=== PATIENT | female | born 1965 ===

== ENCOUNTER 2019-03-20 06:38 | Day surgery (SDC) | payer BC ==
[~2019-03-20 06:38] MED LIST: Lactated Ringers 1,000 ML IV SCH; Sodium Chloride 0.9% 10 ML SDV IV PRN; Sodium Chloride 0.9% 10 ML Syringe FLUSH PRN; Sodium Chloride 0.9% 2.5 ML Syringe FLUSH PRN; ceFAZolin 2 GM in Premix Bag 1 BAG IV ONE
[2019-03-20] MEDS ORDERED: Scopolamine 1.5 MG Transdermal Patch TRDERM PRN (07:05)
--- NOTE | 2019-03-20 07:07 | PCM.PREANE ---
Preanesthetic Assessment - Anesthesia/Transfusion/Family Hx Anesthesia History: Prior Anesthesia Without Reaction Family History of Anesthesia Reaction: No Transfusion History: No Prior Transfusion(s) Intubation History: Unknown - Review of Systems General: No Symptoms Pulmonary: No Symptoms Cardiovascular: No Symptoms Gastrointestinal: No Symptoms Neurological: No Symptoms Other: Reports: None - Physical Assessment Vital Signs: Last Vital Signs Temp 36.3 C 03/20/19 07:01 Pulse 65 03/20/19 07:01 Resp 16 03/20/19 07:01 BP 170/78 H 03/20/19 07:01 Pulse Ox 97 03/20/19 07:01 Height: 5 ft 4.75 in Weight: 112.945 kg ASA Class: 2 Mental Status: Alert & Oriented x3 Airway Class: Mallampati = 1 Dentition: Reports: Normal Dentition Thyro-Mental Finger Breadths: 3 Mouth Opening Finger Breadths: 3 ROM/Head Extension: Full Lungs: Clear to Auscultation, Normal Respiratory Effort Cardiovascular: Regular Rate, Regular Rhythm - Allergies Allergies/Adverse Reactions: Allergies Allergy/AdvReac Type Severity Reaction Status Date / Time No Known Allergies Allergy Verified 03/14/19 09:21 - Blood Blood Available: No - Anesthesia Plan Pre-Op Medication Ordered: None - Acknowledgements Anesthesia Type Planned: General Anesthesia Pt an Appropriate Candidate for the Planned Anesthesia: Yes Alternatives and Risks of Anesthesia Discussed w Pt/Guardian: Yes Pt/Guardian Understands and Agrees with Anesthesia Plan: Yes PreAnesthesia Questionnaire HEENT History: Reports: Cataract Other HEENT History: wears glasses, has cataract in right eye Respiratory History: Reports: Other (See Below) (usees albuterol inhaler for URI ) Genitourinary History: Reports: None CREDIT COUNSELOR History: Reports: Dysfunctional Uterine Bleeding, Endocrine/Metabolic History: Reports: Obesity/BMI 30+ - Past Surgical History Female Surgical History: Reports: Tubal Ligation - SUBSTANCE USE Smoking Status *Q: Never Smoker Recreational Drug Use History: No - HOME MEDS Home Medications: Home Meds Albuterol [Proventil Neb Soln] 1 dose NEB Q6H PRN 03/14/19 [History] - CURRENT (IN HOUSE) MEDS Current Meds: Current Medications Lactated Ringer's (Ringers, Lactated) 1,000 mls @ 500 mls/hr IV BOLUS [facility] Sodium Chloride (Saline Flush) 10 ml FLUSH ASDIRECTED PRN PRN Reason: Keep Vein Open Sodium Chloride (Saline Flush) 2.5 ml FLUSH ASDIRECTED PRN PRN Reason: Keep Vein Open Sodium Chloride (Normal Saline) 10 ml IV ASDIRECTED PRN PRN Reason: IV Use Discontinued Medications Cefazolin Sodium/Dextrose 2 gm (/ Premix) 50 mls @ 100 mls/hr IV ONETIME ONE Stop: 03/20/19 06:54
[2019-03-20] MEDS ORDERED: Ondansetron 4 MG/2 ML SDV ONE (07:13)
[2019-03-20] MEDS ORDERED: Dexamethasone 4 MG/ML 5 ML MDV ONE (07:13)
[2019-03-20] MEDS ORDERED: Midazolam 1 MG/ML 2 ML SDV ONE (07:13)
[2019-03-20] MEDS ORDERED: fentaNYL 100 MCG/2 ML SDV ONE ×2 (07:13→09:59)
[2019-03-20] MEDS ORDERED: Propofol 200 MG/20 ML SDV ONE ×2 (07:13→10:30)
[2019-03-20] MEDS ORDERED: Rocuronium 100 MG/10 ML Syringe ONE (07:13)
[2019-03-20] MEDS ORDERED: Vasopressin 20 Units/1 ML MDV ONE (07:23)
[2019-03-20] MEDS ORDERED: Fluorescein 5 ML Vial ONE (07:24)
[2019-03-20] MEDS ORDERED: Bupivacaine 0.5% 30 ML SDV ONE (07:24)
[2019-03-20] MEDS ORDERED: Bupivacaine 0.25% 10 ML SDV ONE (07:25)
[2019-03-20] MEDS ORDERED: ceFAZolin 1 GM Vial ONE (07:42)
[2019-03-20] MEDS ORDERED: Sodium Chloride 0.9% 20 ML ONE (07:42)
[2019-03-20 07:58] LABS: BLOOD UREA NITROGEN,BUN 11 mg/dL (7.0-18.0); CARBON DIOXIDE,CO2 25.2 mmol/L (21.0-32.0); CHLORIDE,CL 102 mmol/L (98-107); GLUCOSE RANDOM 109 mg/dL (74-106); POTASSIUM,K 4.5 mmol/L (3.5-5.1); SODIUM,NA 139 mmol/L (136-145)
[2019-03-20] MEDS ORDERED: Albuterol 6.7 GM Inhaler INH ONE (08:54)
[2019-03-20] MEDS ORDERED: Furosemide 40 MG/4 ML VIAL ONE (09:06)
[2019-03-20] MEDS ORDERED: Neostigmine Methylsulfate 1 MG/ML 5 ML Syringe ONE (09:09)
[2019-03-20] MEDS ORDERED: Glycopyrrolate 0.2 MG/ML SDV ONE (09:09)
[2019-03-20] MEDS ORDERED: 50% Dextrose in Water 50 ML Syringe IVPUSH PRN (09:33)
[2019-03-20] MEDS ORDERED: Albuterol 0.083% 2.5 MG/3 ML Neb Soln NEB PRN (09:33)
[2019-03-20] MEDS ORDERED: EPINEPHrine 1:10,000 1 MG/10 ML Syringe IVPUSH PRN (09:33)
[2019-03-20] MEDS ORDERED: Naloxone 0.4 MG/ML Syringe IVPUSH PRN (09:33)
[2019-03-20] MEDS ORDERED: Atropine 0.1 MG/ML 10 ML Syringe IVPUSH PRN ×2 (09:33)
[2019-03-20] MEDS ORDERED: fentaNYL 100 MCG/2 ML SDV IVPUSH PRN (09:33)
[2019-03-20] MEDS ORDERED: Ketorolac 30 MG/ML SDV ONE (10:17)
[2019-03-20] MEDS ORDERED: Octyl 2-Cyanoacrylate 1 Tube ONE (10:44)
[2019-03-20] MEDS ORDERED: Promethazine 25 MG/ML SDV ONE (11:15)
[2019-03-20] MEDS ORDERED: Promethazine 25 MG/ML SDV IM ONE (11:19)
[2019-03-20] MEDS ORDERED: Promethazine 25 MG/ML SDV IM PRN (11:29)
[2019-03-20] MEDS ORDERED: Ondansetron 4 MG/2 ML SDV IVPUSH PRN (11:29)
[2019-03-20] MEDS ORDERED: Morphine 4 MG/ML Syringe IVPUSH PRN (11:29)
[2019-03-20] MEDS ORDERED: Ketorolac 30 MG/ML SDV IVPUSH PRN (11:29)
[2019-03-20] MEDS ORDERED: Ketorolac 30 MG/ML SDV IVPUSH ONE (11:29)
--- NOTE | 2019-03-20 11:41 | PCM.OPNOTE ---
- General Post-Op/Procedure Note Date of Surgery/Procedure: 03/20/19 Operative Procedure(s): Total Laparoscopic Hysterectomy , Bilateral salphingoophorectomy. Cytoscopy Findings: 8 week sized anteverted uterus Tubes with evidence of BTL , however appears normal Normal ovary Pre Op Diagnosis: Chronic Pelvic Pain. Abnormal Uterine bleeding Post-Op Diagnosis: Chronic Pelvic pain. Abnormal Uterine bleeding Anesthesia Technique: General ET Tube Primary Surgeon: Pankaj Stewart Secondary Surgeon: Denice Hernandez Pathology: Uterus , Tube and Ovaries Fluid Replacement, Intraop: 2,000 Output, Urine Amount: 450 EBL in mLs: 100 Complications: None Condition: Good Free Text/Narrative:: Intake & Output 03/19/19 03/20/19 03/20/19 22:59 06:59 14:59 Output Total 450 Balance -450
--- NOTE | 2019-03-20 11:44 | PCM.POSTAN ---
POST ANESTHESIA ASSESSMENT - MENTAL STATUS Mental Status: Alert, Oriented - VITAL SIGNS Vital Signs: Last Vital Signs Temp 36.3 C 03/20/19 07:01 Pulse 66 03/20/19 11:35 Resp 16 03/20/19 11:35 BP 113/64 03/20/19 11:35 Pulse Ox 97 03/20/19 11:35 - RESPIRATORY Respiratory Status: Respiratory Rate WNL, Airway Patent, O2 Saturation Stable - CARDIOVASCULAR CV Status: Pulse Rate WNL, Blood Pressure Stable - GASTROINTESTINAL GI Status: No Symptoms - PAIN Pain Score: 0 - POST OP HYDRATION Hydration Status: Adequate & Stable - OBSERVATIONS Free Text/Narrative:: no anesthesia problems
[2019-03-20] MEDS ORDERED: Metoclopramide 10 MG/2 ML SDV IVPUSH SCH (11:45)
[2019-03-20] MEDS: Acetaminophen 500 MG Tab PO SCH ×2 (14:43→21:43)
[2019-03-20] MEDS: Metoclopramide 10 MG/2 ML SDV IVPUSH SCH ×2 (16:00→20:30)
[2019-03-20] MEDS: Lactated Ringers 1,000 ML IV SCH (16:42)
--- NOTE | 2019-03-20 18:01 | OR ---
SURGEON: PASHA Hernandez MD DATE OF PROCEDURE: 03/20/2019 PREOPERATIVE DIAGNOSIS: A 53-year-old para 2 with abnormal uterine bleeding (Leiomyoma) and chronic pelvic pain, desiring definitive management. POSTOPERATIVE DIAGNOSIS: A 53-year-old para 2 with abnormal uterine bleeding(Leiomyoma) and chronic pelvic pain, desiring definitive management. PROCEDURES: Total laparoscopic hysterectomy, bilateral salpingo-oophorectomy, cystoscopy. ANESTHESIA: General. ESTIMATED BLOOD LOSS: 100. IV FLUIDS: 2000. URINE OUTPUT: 450. NOTES AND FINDINGS: 10-week size anteverted uterus. Normal tubes with evidence of tubal ligation. Normal ovaries noted. There was no endometriosis or other pathology noted. BRIEF HISTORY: A 53-year-old, para 2, who came in complaining of chronic pelvic pain. She declined any other form of management. She has had this pain for about 2 to 3 years. She had an endometrial biopsy done, which was negative. USS showed uterine fibroid. The patient declined conservative management. She wanted to go for definitive management with hysterectomy. DESCRIPTION OF PROCEDURE: The patient was taken to the operating room where she was placed in the dorsal lithotomy position with an Nitin stirrups. She was prepared and draped in the normal sterile fashion. A Page catheter was placed. A speculum was used to expose the cervix after being prepped, and the anterior lip of the cervix was clamped with Allis clamp. The cervix was dilated to accommodate the Advincula interim manipulator. Then, attention was placed to the abdomen. 0.25% Marcaine was infiltrated into the subumbilical fold and 5 mm incision was made. The abdomen was entered via direct entry with the fiberoptic trocar. Entry was confirmed by low pressure of 5 mmHg. Pneumoperitoneum was obtained to 15 mmHg. Then, the patient was placed in Trendelenburg position. The right and left trocar were placed 2 fingerbreadths superior and medial to the anterior superior iliac spine. The uterus was elevated with aid of the uterine manipulator. The bilateral ureters were identified. The bowel was retracted out of the operative field with the aid of the LigaSure device. The fallopian tube was then coagulated and cut all the way to the cornua. The round ligament was also transected. Then, the broad ligament was entered in with the aid of the LigaSure and also the Harmonic device. The bladder flap was from the lower uterine segment. The uterine vessel was then skeletonized with good visualization. The uterine vessel was coagulated and cut at the cuff and lateralized. This was done on the right and left side. Then, a circumferential incision was made at the cervicovaginal junction at around the cup and the uterus was from the vagina. Then, attention was placed to the perineum where the uterus was then brought out with the aid of the manipulator. Then, the uterosacral ligaments were identified. A Rudolph stitch was done with 2-0 Vicryl, was placed from the posterior vaginal wall to the uterosacral ligament over the pelvic peritoneum to the cul-de-sac to the uterosacral ligament. Then, the colpotomy cup was closed anteroposteriorly with 0 Polysorb. IV fluorescein was given. The cystoscopy was then done. The bladder was noted to be intact and bilateral jets were observed from the ureteral orifice in the bladder. Then, a sponge stick was placed into the vagina. Attention was placed to the abdomen. The incision was inspected, was noted to be hemostatic. Pneumoperitoneum was reduced to 5 mmHg. Hemostasis was noted. Then, the pneumoperitoneum was deflated from also the abdomen. All the trocars were removed. The laparoscopic incision was closed with 3-0 Monocryl. All instrument and pad count were correct x2. The patient tolerated the procedure well and was taken to the recovery room in stable condition. VINCE LYNNE /[id number] CHRISTIAN
[2019-03-20] MEDS: oxyCODONE 5 MG Tab PO PRN (18:26)
[2019-03-21] MEDS: Lactated Ringers 1,000 ML IV SCH (00:20)
[2019-03-21] MEDS: oxyCODONE 5 MG Tab PO PRN (00:23)
[2019-03-21] MEDS: Metoclopramide 10 MG/2 ML SDV IVPUSH SCH ×2 (02:45→09:03)
[2019-03-21] MEDS: Acetaminophen 500 MG Tab PO SCH (06:03)
[2019-03-21 06:42] LABS: BLOOD UREA NITROGEN,BUN 8 mg/dL (7.0-18.0); CARBON DIOXIDE,CO2 27.4 mmol/L (21.0-32.0); CHLORIDE,CL 104 mmol/L (98-107); GLUCOSE RANDOM 123 mg/dL (74-106); POTASSIUM,K 4.1 mmol/L (3.5-5.1); SODIUM,NA 139 mmol/L (136-145)
--- NOTE | 2019-03-21 07:22 | PCM48HPAN ---
Post Anesthesia Note - EVALUATION WITHIN 48HRS OF ANESTHETIC Vital Signs in Normal Range: Yes Patient Participated in Evaluation: Yes Respiratory Function Stable: Yes Airway Patent: Yes Cardiovascular Function Stable: Yes Hydration Status Stable: Yes Pain Control Satisfactory: Yes Nausea and Vomiting Control Satisfactory: Yes Mental Status Recovered: Yes Vital Signs: Last Vital Signs Temp 36.4 C 03/21/19 04:00 Pulse 85 03/21/19 04:00 Resp 18 03/21/19 04:00 BP 139/63 03/21/19 04:00 Pulse Ox 95 03/21/19 04:00
--- NOTE | 2019-03-21 08:37 | PCM.SURGPN ---
- General Info Date of Service: 03/21/19 Date of Surgery/Procedure: 03/21/19 POD#: 1 Post-Op Diagnosis: AUB secondary to Fibroid uterus Functional Status: Reports: Pain Controlled, Tolerating Diet, Ambulating, Urinating - Review of Systems General: Reports: No Symptoms HEENT: Reports: No Symptoms Pulmonary: Reports: No Symptoms Cardiovascular: Reports: No Symptoms Gastrointestinal: Reports: No Symptoms Genitourinary: Reports: No Symptoms Musculoskeletal: Reports: No Symptoms Skin: Reports: No Symptoms Neurological: Reports: No Symptoms Psychiatric: Reports: No Symptoms - Patient Data Vitals - Most Recent: Last Vital Signs Temp 36.8 C 03/21/19 07:53 Pulse 56 L 03/21/19 07:53 Resp 16 03/21/19 07:53 BP 131/63 03/21/19 07:53 Pulse Ox 95 03/21/19 07:53 Weight - Most Recent: 112.945 kg I&O - Last 24 Hours: Intake & Output 03/20/19 03/21/19 03/21/19 22:59 06:59 14:59 Intake Total 700 3806 Output Total 1200 1400 Balance -500 2406 Lab Results Last 24 Hrs: Laboratory Results - last 24 hr 03/20/19 03/21/19 03/21/19 Range/Units 07:10 06:11 06:11 WBC 12.35 H (4.0-11.0) K/uL RBC 3.76 L (4.30-5.90) M/uL Hgb 9.5 L (12.0-16.0) g/dL Hct 30.9 L (36.0-46.0) % MCV 82.2 (80.0-98.0) fL MCH 25.3 L (27.0-32.0) pg MCHC 30.7 L (31.0-37.0) g/dL RDW Std Deviation 52.3 (28.0-62.0) fl RDW Coeff of Ulisses 17 H (11.0-15.0) % Plt Count 242 (150-400) K/uL MPV 9.80 (7.40-12.00) fL Add Manual Diff YES Neutrophils % (Manual) 74 (48.0-80.0) % Band Neutrophils % 1 % Lymphocytes % (Manual) 18 (16.0-40.0) % Monocytes % (Manual) 6 (0.0-15.0) % Eosinophils % (Manual) 1 (0.0-7.0) % Nucleated RBC % 0.0 /100WBC Absolute Seg Neuts 9.1 H (1.4-5.7) Band Neutrophils # 0.1 Lymphocytes # (Manual) 2.2 (0.6-2.4) Monocytes # (Manual) 0.7 (0.0-0.8) Eosinophils # (Manual) 0.1 (0.0-0.7) Nucleated RBCs # 0 K/uL Sodium 139 (136-145) mmol/L Potassium 4.1 (3.5-5.1) mmol/L Chloride 104 (98-107) mmol/L Carbon Dioxide 27.4 (21.0-32.0) mmol/L BUN 8 (7.0-18.0) mg/dL Creatinine 0.7 (0.6-1.0) mg/dL Est Cr Clr Drug Dosing 84.70 mL/min Estimated GFR (MDRD) > 60.0 ml/min Glucose 123 H (74-106) mg/dL Calcium 8.1 L (8.5-10.1) mg/dL Blood Type O NEGATIVE Antibody Screen NEGATIVE Med Orders - Current: Current Medications Acetaminophen (Tylenol Extra Strength) 1,000 mg PO Q8H [facility] Last Admin: 03/21/19 06:03 Dose: 1,000 mg Lactated Ringer's (Ringers, Lactated) 1,000 mls @ 500 mls/hr IV BOLUS [facility] Last Admin: 03/20/19 07:06 Dose: 500 mls/hr Lactated Ringer's (Ringers, Lactated) 1,000 mls @ 125 mls/hr IV ASDIRECTED [facility] Last Admin: 03/21/19 00:20 Dose: 125 mls/hr Ketorolac Tromethamine (Toradol) 30 mg IVPUSH Q6H PRN PRN Reason: Pain (severe 7-10) Stop: 03/25/19 11:29 Metoclopramide HCl (Reglan) 10 mg IVPUSH Q6H [facility] Last Admin: 03/21/19 02:45 Dose: 10 mg Morphine Sulfate (Morphine) 4 mg IVPUSH Q2H PRN PRN Reason: Pain (severe 7-10) Last Admin: 03/20/19 12:25 Dose: 4 mg Ondansetron HCl (Zofran) 4 mg IVPUSH Q6H PRN PRN Reason: Nausea/Vomiting Last Admin: 03/21/19 01:30 Dose: 4 mg Oxycodone HCl (Oxycodone) 5 mg PO Q4H PRN PRN Reason: Pain (moderate 4-6) Last Admin: 03/21/19 00:23 Dose: 5 mg Promethazine HCl (Phenergan) 25 mg IM Q6H PRN PRN Reason: Nausea/Vomiting Scopolamine (Transderm-Scop) 1.5 mg TRDERM Q72H PRN PRN Reason: Nausea Last Admin: 03/20/19 07:22 Dose: 1.5 mg Sodium Chloride (Saline Flush) 10 ml FLUSH ASDIRECTED PRN PRN Reason: Keep Vein Open Sodium Chloride (Saline Flush) 2.5 ml FLUSH ASDIRECTED PRN PRN Reason: Keep Vein Open Sodium Chloride (Normal Saline) 10 ml IV ASDIRECTED PRN PRN Reason: IV Use Discontinued Medications Albuterol (Proventil Hfa) Confirm Administered Dose 6.7 gm INH .STK-MED ONE Stop: 03/20/19 08:55 Albuterol (Proventil Neb Soln) 2.5 mg NEB ONETIME PRN PRN Reason: Wheezing Atropine Sulfate (Atropine 0.1 Mg/Ml) 0.5 mg IVPUSH ASDIRECTED PRN PRN Reason: Hypo-perfusion Stop: 03/20/19 09:33 Atropine Sulfate (Atropine 0.1 Mg/Ml) 1 mg IVPUSH ASDIRECTED PRN PRN Reason: Hypo-Perfusion Bupivacaine HCl (Marcaine 0.5%) Confirm Administered Dose 30 ml .ROUTE .STK-MED ONE Stop: 03/20/19 07:25 Bupivacaine HCl (Sensorcaine-Mpf 0.25%) Confirm Administered Dose 20 ml .ROUTE .STK-MED ONE Stop: 03/20/19 07:26 Cefazolin Sodium (Ancef) Confirm Administered Dose 2 gm .ROUTE .STK-MED ONE Stop: 03/20/19 07:43 Dexamethasone (Dexamethasone) Confirm Administered Dose 20 mg .ROUTE .STK-MED ONE Stop: 03/20/19 07:14 Dextrose/Water (Dextrose 50% In Water) 50 ml IVPUSH ASDIRECTED PRN PRN Reason: Hypoglycemia Epinephrine HCl (Epinephrine 1:10,000) 1 mg IVPUSH ASDIRECTED PRN PRN Reason: ACLS Guidelines Fentanyl (Sublimaze) Confirm Administered Dose 200 mcg .ROUTE .STK-MED ONE Stop: 03/20/19 07:14 Fentanyl (Sublimaze) 50 mcg IVPUSH Q5M PRN PRN Reason: Pain Fentanyl (Sublimaze) Confirm Administered Dose 100 mcg .ROUTE .STK-MED ONE Stop: 03/20/19 10:00 Fluorescein Sodium (Ak-Fluor) Confirm Administered Dose 5 ml .ROUTE .STK-MED ONE Stop: 03/20/19 07:25 Furosemide (Lasix) Confirm Administered Dose 40 mg .ROUTE .STK-MED ONE Stop: 03/20/19 09:07 Glycopyrrolate (Robinul) Confirm Administered Dose 0.6 mg .ROUTE .STK-MED ONE Stop: 03/20/19 09:10 Cefazolin Sodium/Dextrose 2 gm (/ Premix) 50 mls @ 100 mls/hr IV ONETIME ONE Stop: 03/20/19 06:54 Last Admin: 03/20/19 14:41 Dose: Not Given Sodium Chloride (Normal Saline) Confirm Administered Dose 20 mls @ as directed .ROUTE .STK-MED ONE Stop: 03/20/19 07:43 Ketorolac Tromethamine (Toradol) Confirm Administered Dose 30 mg .ROUTE .STK- MED ONE Stop: 03/20/19 10:18 Ketorolac Tromethamine (Toradol) 30 mg IVPUSH ONETIME ONE Stop: 03/20/19 11:30 Last Admin: 03/20/19 15:31 Dose: Not Given Lidocaine HCl (Xylocaine-Mpf 1%) Confirm Administered Dose 5 ml .ROUTE .STK-MED ONE Stop: 03/20/19 07:14 Metoclopramide HCl (Reglan) 10 mg IVPUSH Q6H [facility] Last Admin: 03/20/19 14:43 Dose: 10 mg Midazolam HCl (Versed 1 Mg/Ml) Confirm Administered Dose 2 mg .ROUTE .STK-MED ONE Stop: 03/20/19 07:14 Naloxone HCl (Narcan) 0.1 mg IVPUSH ASDIRECTED PRN PRN Reason: Respiratory Depression Neostigmine Methylsulfate (Neostigmine) Confirm Administered Dose 5 mg .ROUTE .STK-MED ONE Stop: 03/20/19 09:10 Octyl Cyanoacrylate (Dermabond Advance) Confirm Administered Dose 1 applic .ROUTE .STK-MED ONE Stop: 03/20/19 10:45 Ondansetron HCl (Zofran) Confirm Administered Dose 4 mg .ROUTE .STK-MED ONE Stop: 03/20/19 07:14 Promethazine HCl (Phenergan) Confirm Administered Dose 25 mg .ROUTE .STK-MED ONE Stop: 03/20/19 11:16 Last Admin: 03/20/19 14:42 Dose: Not Given Promethazine HCl (Phenergan) 25 mg IM ONETIME ONE Stop: 03/20/19 11:20 Last Admin: 03/20/19 11:20 Dose: 25 mg Propofol (Diprivan 20 Ml) Confirm Administered Dose 200 mg .ROUTE .STK-MED ONE Stop: 03/20/19 07:14 Propofol (Diprivan 20 Ml) Confirm Administered Dose 200 mg .ROUTE .STK-MED ONE Stop: 03/20/19 10:31 Rocuronium Valentines (Zemuron) Confirm Administered Dose 100 mg .ROUTE .STK-MED ONE Stop: 03/20/19 07:14 Vasopressin (Vasopressin) Confirm Administered Dose 20 units .ROUTE .STK-MED ONE Stop: 03/20/19 07:24 - Exam Wound/Incisions: Dressing Dry and Intact General: Alert HEENT: Pupils Equal Neck: Supple Lungs: Clear to Auscultation Cardiovascular: Regular Rate, Regular Rhythm GI/Abdominal Exam: Normal Bowel Sounds Neurological: No New Focal Deficit Psy/Mental Status: Alert - Problem List & Annotations (1) S/P hysterectomy with oophorectomy SNOMED Code(s): 179744214 Code(s): Z90.710 - ACQUIRED ABSENCE OF BOTH CERVIX AND UTERUS; Z90.721 - ACQUIRED ABSENCE OF OVARIES, UNILATERAL Status: Acute Current Visit: Yes - Problem List Review Problem List Initiated/Reviewed/Updated: Yes - My Orders Last 24 Hours: Active Orders 24 hr Category Date Time Status Patient Status [ADT] Routine ADT 03/20/19 11:29 Active Antiembolic Devices [RC] PER UNIT ROUTINE Care 03/20/19 11:30 Active Blood Glucose Check, Bedside [RC] PRN Care 03/20/19 09:33 Active Notify Provider Intake and Out [RC] ASDIRECTED Care 03/20/19 11:29 Active Notify Provider Vital Signs [RC] ASDIRECTED Care 03/20/19 09:33 Active Notify Provider Vital Signs [RC] ASDIRECTED Care 03/20/19 11:29 Active Oxygen Therapy [RC] ASDIRECTED Care 03/20/19 11:29 Active Oxygen Therapy [RC] PRN Care 03/20/19 09:33 Active RT Aerosol Therapy [RC] ASDIRECTED Care 03/20/19 09:33 Active RT Aerosol Therapy [RC] ASDIRECTED Care 03/20/19 09:33 Active RT Incentive Spirometry [RC] Q2HWA Care 03/20/19 11:29 Active Up With Assistance [RC] PER UNIT ROUTINE Care 03/20/19 11:29 Active Up ad Nataly [RC] PER UNIT ROUTINE Care 03/20/19 11:29 Active Vital Signs [RC] PER UNIT ROUTINE Care 03/20/19 11:29 Active Advance Diet Instructions [DIET] Diet 03/20/19 Dinner Active Acetaminophen [Tylenol Extra Strength] Med 03/20/19 14:00 Active 1,000 mg PO Q8H Ketorolac [Toradol] Med 03/20/19 11:29 Active 30 mg IVPUSH Q6H PRN Lactated Ringers [Ringers, Lactated] 1,000 ml Med 03/20/19 15:48 Active IV ASDIRECTED Metoclopramide [Reglan] Med 03/20/19 14:45 Active 10 mg IVPUSH Q6H Morphine Med 03/20/19 11:29 Active 4 mg IVPUSH Q2H PRN Ondansetron [Zofran] Med 03/20/19 11:29 Active 4 mg IVPUSH Q6H PRN Promethazine [Phenergan] Med 03/20/19 11:29 Active 25 mg IM Q6H PRN oxyCODONE Med 03/20/19 11:29 Active 5 mg PO Q4H PRN Peripheral IV Discontinue [OM.PC] Routine Oth 03/20/19 11:29 Ordered Sequential Compression Device [OM.PC] Per Unit Routine Oth 03/20/19 11:29 Ordered Resuscitation Status Routine Resus Stat 03/20/19 11:29 Ordered Medication Orders Acetaminophen (Tylenol Extra Strength) 1,000 mg PO Q8H [facility] Last Admin: 03/21/19 06:03 Dose: 1,000 mg Admin: 03/20/19 21:43 Dose: 1,000 mg Admin: 03/20/19 14:43 Dose: 1,000 mg Lactated Ringer's (Ringers, Lactated) 1,000 mls @ 500 mls/hr IV BOLUS [facility] Last Admin: 03/20/19 07:06 Dose: 500 mls/hr Lactated Ringer's (Ringers, Lactated) 1,000 mls @ 125 mls/hr IV ASDIRECTED [facility] Last Admin: 03/21/19 00:20 Dose: 125 mls/hr Infusion: 03/21/19 00:20 Dose: 125 mls/hr Admin: 03/20/19 16:42 Dose: 125 mls/hr Ketorolac Tromethamine (Toradol) 30 mg IVPUSH Q6H PRN PRN Reason: Pain (severe 7-10) Stop: 03/25/19 11:29 Metoclopramide HCl (Reglan) 10 mg IVPUSH Q6H [facility] Last Admin: 03/21/19 02:45 Dose: 10 mg Admin: 03/20/19 20:30 Dose: 10 mg Admin: 03/20/19 16:00 Dose: 10 mg Morphine Sulfate (Morphine) 4 mg IVPUSH Q2H PRN PRN Reason: Pain (severe 7-10) Last Admin: 03/20/19 12:25 Dose: 4 mg Ondansetron HCl (Zofran) 4 mg IVPUSH Q6H PRN PRN Reason: Nausea/Vomiting Last Admin: 03/21/19 01:30 Dose: 4 mg Oxycodone HCl (Oxycodone) 5 mg PO Q4H PRN PRN Reason: Pain (moderate 4-6) Last Admin: 03/21/19 00:23 Dose: 5 mg Admin: 03/20/19 18:26 Dose: 5 mg Promethazine HCl (Phenergan) 25 mg IM Q6H PRN PRN Reason: Nausea/Vomiting Scopolamine (Transderm-Scop) 1.5 mg TRDERM Q72H PRN PRN Reason: Nausea Last Admin: 03/20/19 07:22 Dose: 1.5 mg Sodium Chloride (Saline Flush) 10 ml FLUSH ASDIRECTED PRN PRN Reason: Keep Vein Open Sodium Chloride (Saline Flush) 2.5 ml FLUSH ASDIRECTED PRN PRN Reason: Keep Vein Open Sodium Chloride (Normal Saline) 10 ml IV ASDIRECTED PRN PRN Reason: IV Use - Assessment Assessment (Free Text/Narrative):: 53yo s/p TLH/BSO POD1 , patient is ambulating , voiding and tolerating regular diet - Plan Plan (Free Text/Narrative):: Discharge home today
== END 2019-03-21 09:25 | disposition home or self-care (01) ==
LOC: MW.SDS 06:38 → MW.MS 11:25 → MW.SDS 03-21 09:25
PROVIDERS: ATTEND Obstetrics & Gynecology
DX: D39.0 Neoplasm of uncertain behavior of uterus (principal); D25.1 Intramural leiomyoma of uterus; N88.8 Other specified noninflammatory disorders of cervix uteri; N72 Inflammatory disease of cervix uteri; N83.201 Unspecified ovarian cyst, right side; N83.01 Follicular cyst of right ovary; N83.02 Follicular cyst of left ovary; E66.9 Obesity, unspecified; Z68.41 Body mass index [BMI] 40.0-44.9, adult; Z98.51 Tubal ligation status
CPT/HCPCS: 36415; 58571; 80048; 84703; 85025; 86850; 86900; 86901; 88309; A9270; J0690; J1100; J1885; J1940; J2001; J2250; J2270; J2405; J2550; J2704; J2765; J3010; J3490; J7120; 00840